=== PATIENT | female | born 1985 | race Caucasian/White ===

== ENCOUNTER 2019-01-16 16:57 | Emergency (ER) | payer BC, OTHER ==
[2019-01-16] MEDS ORDERED: diphenhydrAMINE 50 MG/ML SDV IVPUSH ONE (17:22)
[2019-01-16] MEDS ORDERED: methylPREDNISolone Sodium Succinate 125 MG/2 ML SDV IVPUSH ONE (17:23)
[2019-01-16] MEDS ORDERED: Famotidine 20 MG/2 ML SDV IVPUSH ONE (17:23)
[2019-01-16] MEDS ORDERED: Sodium Chloride 0.9% 1,000 ML IV SCH (17:30)
--- NOTE | 2019-01-16 17:31 | EDM.PDOC ---
ED HPI GENERAL MEDICAL PROBLEM - General Chief Complaint: Allergic Reaction Stated Complaint: ALLERGIC RX SENT FROM CLINIC Time Seen by Provider: 01/16/19 17:15 Source of Information: Reports: Patient History Limitations: Reports: No Limitations - History of Present Illness INITIAL COMMENTS - FREE TEXT/NARRATIVE: 33-year-old female presents to the ED with an acute allergic reaction likely due to environmental exposure. She states she was out cutting grass this morning around 0900 hrs. and started to develop generalized pruritus and development of hives in her antecubital fossa is and popliteal fossas. She has taken 75 mg of Benadryl since this morning. She has a history of being allergic to environmental things in the past but each ear seems to get a bit worse. Today she is also developed swelling in her throat and has a hot potato" voice. She also feels a bit of central pressure discomfort which I think is bronchospasm. She's not wheezing per se. She has mild generalized erythema. Onset: Today Onset Date: 01/16/19 Onset Time: 09:00 Duration: Hour(s):, Getting Worse Location: Reports: Face (Feels swelling in her neck and throat.), Chest (Some central chest pressure discomfort which I believe is upper bronchospasm without wheeze.), Upper Extremity, Left, Upper Extremity, Right, Lower Extremity, Left, Lower Extremity, Right, Other (Generalized pruritus with hives in the antecubital fossa is and popliteal fossa of both legs.) Quality: Reports: Other (Generalized pruritus) Severity: Moderate Improves with: Reports: None Worsens with: Reports: None Context: Reports: Other (Started while cutting grass this morning and mowing the lawn.). Denies: Activity, Exercise, Lifting, Sick Contact, Trauma Associated Symptoms: Reports: Malaise, Rash (Hives antecubital fossa is and popliteal fossa is.). Denies: Confusion, Chest Pain, Cough, cough w sputum, Diaphoresis, Fever/Chills, Headaches, Loss of Appetite, Nausea/Vomiting, Seizure (From taking so much Benadryl), Shortness of Breath, Syncope Treatments GENETIC COORDINATOR: Reports: Other (see below) (She has taken 75 mg of Benadryl so far today.) - Related Data Allergies Allergy/AdvReac Type Severity Reaction Status Date / Time Seasonal Allergy Hives Uncoded 06/18/19 17:10 Home Meds: Home Meds Cetirizine HCl [Zyrtec] 10 mg PO DAILY 01/16/19 [History] FLUoxetine [PROzac] 10 mg PO DAILY 01/16/19 [History] predniSONE [Deltasone] 20 mg PO BID #20 tablet 01/16/19 [Rx] Past Medical History Cardiovascular History: Reports: None Respiratory History: Reports: None Gastrointestinal History: Reports: None Genitourinary History: Reports: None 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 Social & Family History - Tobacco Use Smoking Status *Q: Never Smoker - Caffeine Use Caffeine Use: Reports: None - Recreational Drug Use Recreational Drug Use: No - Living Situation & Occupation Living situation: Reports: Single Occupation: Student ED ROS ALLERGIC REACTION - Review of Systems Review Of Systems: See Below Constitutional: Denies: Fever, Chills, Malaise, Weakness, Fatigue, Decreased Appetite, Weight Loss HEENT: Reports: Rhinitis, Throat Swelling (Awareness of throat swelling in the back of her throat with hot potato voice. Symptoms seem to be worsening over the last 6 hours) Respiratory: Reports: Shortness of Breath (Clear fluid from the nose.), Other ( Central chest pressure discomfort.). Denies: Wheezing Cardiovascular: Reports: Chest Pain, Blood Pressure Problem (Central chest pressure discomfort.). Denies: Dyspnea on Exertion, Edema, Lightheadedness, Orthopnea Endocrine: Reports: Fatigue GI/Abdominal: Reports: No Symptoms. Denies: Diarrhea : Reports: No Symptoms Musculoskeletal: Reports: No Symptoms Skin: Reports: Pruritis, Erythema (Generalized pruritus and realized erythema), Urticaria (Mostly in the antecubital fossa some popliteal fossa is) Neurological: Reports: No Symptoms Psychiatric: Reports: No Symptoms Hematologic/Lymphatic: Reports: No Symptoms Immunologic: Reports: No Symptoms ED EXAM GENERAL NO PERIP PULSE - Physical Exam Exam: See Below Exam Limited By: No Limitations General Appearance: Alert, WD/WN, Moderate Distress, Other (Speaks with hot potato voice.) Eye Exam: Bilateral Eye: Normal Inspection, Periorbital Changes (No swelling of upper or lower eyelids.) Nose: Clear Rhinorrhea Throat/Mouth: Other (There is swelling of the soft palate and the uvula. For the mouth is normal.) Neck: Normal Inspection, Supple, Non-Tender, Full Range of Motion, Other (There is no inspiratory stridor.). No: Carotid Bruit, Lymphadenopathy (L), Lymphadenopathy (R) Respiratory/Chest: Lungs Clear, Normal Breath Sounds, Chest Non-Tender, Respiratory Distress. No: Wheezing (Mild tachypnea.), Stridor Cardiovascular: Normal Peripheral Pulses, Regular Rate, Rhythm, No Murmur, No Rub, Tachycardia (Mild tachycardia at rest while 2/m. She is quite anxious.) Extremities: Normal Inspection, Normal Range of Motion, Non-Tender, No Pedal Edema, Normal Capillary Refill Neurological: Alert, Oriented, CN II-XII Intact, Normal Cognition Psychiatric: Normal Mood, Anxious Skin Exam: Warm, Dry, Intact, Erythema (Generalized erythema.), Rash (Urticaria antecubital fossae and popliteal fossae) Course - Vital Signs Last Recorded V/S: Last Vital Signs Temp 36.0 C 01/16/19 17:06 Pulse 102 H 01/16/19 17:06 Resp 20 01/16/19 17:06 BP 181/100 H 01/16/19 17:06 Pulse Ox 100 01/16/19 17:06 - Orders/Labs/Meds Orders: Active Orders 24 hr Category Date Time Status Sodium Chloride 0.9% [Normal Saline] 1,000 ml Med 01/16/19 17:30 Active IV ASDIRECTED Medication Orders Sodium Chloride (Normal Saline) 1,000 mls @ 500 mls/hr IV ASDIRECTED ELICIA Last Admin: 01/16/19 17:32 Dose: 500 mls/hr Meds: Medications Generic Name Dose Route Start Last Admin Trade Name Freq PRN Reason Stop Dose Admin Sodium Chloride 1,000 mls @ 500 mls/hr 01/16/19 17:30 01/16/19 17:32 Normal Saline IV 500 mls/hr ASDIRECTED ELICIA Administration Discontinued Medications Generic Name Dose Route Start Last Admin Trade Name Freq PRN Reason Stop Dose Admin Diphenhydramine HCl 50 mg 01/16/19 17:22 01/16/19 17:33 Benadryl IVPUSH 01/16/19 17:23 50 mg ONETIME ONE Administration Famotidine 20 mg 01/16/19 17:23 01/16/19 17:36 Pepcid IVPUSH 01/16/19 17:24 20 mg ONETIME ONE Administration Methylprednisolone Sodium Succinate 125 mg 01/16/19 17:23 01/16/19 17:38 Solu-Medrol IVPUSH 01/16/19 17:24 125 mg ONETIME ONE Administration - Radiology Interpretation Free Text/Narrative:: 33-year-old female presents to the ED with an acute allergic reaction apparently to environmental exposure to mowing lawn grass. She states she's developed hives over the last few years. She took 75 mg of Benadryl so far this morning and allergic symptoms seem to be continuing as she is developing more of a hot potato voice and a pressure sensation in her central chest without wheezing. She has hives in the antecubital fossae bilaterally as well as in the popliteal fossae bilaterally with some mild generalized erythema and generalized pruritus. Plan IV normal saline at 500 mils per hour. Given Solu- Medrol 125 mg IV with Pepcid 20 mg IV and Benadryl 50 mg IV. Will review her in one half hour. - Re-Assessments/Exams Free Text/Narrative Re-Assessment/Exam: 01/16/19 18:26: Erythema is dissipating as is the generalized pruritus. Hives are also dissipating. She still has a hot potato voice on inspection the uvula is still swollen but is reduced in size compared to my original assessment. Will review and half an hour Departure - Departure Time of Disposition: 18:58 Disposition: Home, Self-Care 01 Condition: Fair Clinical Impression: Allergic reaction Qualifiers: Encounter type: initial encounter Qualified Code(s): T78.40XA - Allergy, unspecified, initial encounter - Discharge Information *PRESCRIPTION DRUG MONITORING PROGRAM REVIEWED*: Not Applicable *COPY OF PRESCRIPTION DRUG MONITORING REPORT IN PATIENT ADRIANNE: Not Applicable Prescriptions: predniSONE [Deltasone] 20 mg PO BID #20 tablet Instructions: Hives Referrals: PCP,None [Primary Care Provider] - Forms: ED Department Discharge Additional Instructions: Evaluation the emergency room today in regards to development of a generalized allergic reaction involving redness or erythema of her skin. Development of hives in the antecubital fossae and popliteal fossae which is in the elbow creases and the tissue behind her knees. Also associated upper respiratory tract symptoms with swelling of the soft palate and the uvula. Also I suspect mild bronchospasm in her chest with discomfort without wheezing in the upper chest. You would take and 75 mg of Benadryl this morning. In spite of the symptoms seem to be worsening as the day went on. You're therefore treated with intravenous fluids. Solu-Medrol 125 mg IV with Pepcid 20 mg IV and 50 Zheng grams of Benadryl IV. The steroids will take about 4 hours to start to work and should relieve most of your symptoms overnight. Are you may use Benadryl 50 mg every 6 hours as necessary for relief of itching or return of hives. Suggest use of prednisone 20 mg with breakfast and supper for the next 5 days to make sure the allergic reaction completely settles down. There are 10 tablets of prednisone and extra that may be taken at the onset of Allergic reaction with one tablet twice daily for 5 days and Benadryl 50 mg every 6 hours as needed. Continues Zyrtec 10 mg every day. If possible you want to try and remove yourself from the potential allergens source. I'm not sure that constantino will be able to cut the grass again without having any similar experience. Possibly being fully covered and using fairly thick gloves may prevent sensitization. Suggest follow-up with an allergenist to have testing carried out to see what your allergic to and the possibility of starting a desensitization program since you're allergic response was fairly significant today. - My Orders Last 24 Hours: My Active Orders 01/16/19 17:30 Sodium Chloride 0.9% [Normal Saline] 1,000 ml IV ASDIRECTED - Assessment/Plan Last 24 Hours: My Active Orders 01/16/19 17:30 Sodium Chloride 0.9% [Normal Saline] 1,000 ml IV ASDIRECTED
== END 2019-01-16 19:21 | disposition home or self-care (01) ==
LOC: JD.ED 16:57
DX: L50.0 Allergic urticaria (principal); J30.1 Allergic rhinitis due to pollen; Z79.899 Other long term (current) drug therapy
CPT/HCPCS: 96361; 96374; 96375; 99282; J1200; J2930; J3490; J7040; 99284

== ENCOUNTER 2019-05-31 16:30 | Observation (INO) | payer OTHER ==
[2019-05-31] MEDS ORDERED: Sodium Chloride 0.9% 10 ML Syringe FLUSH PRN ×2 (17:10→17:23)
[2019-05-31] MEDS ORDERED: Sodium Chloride 0.9% 1,000 ML IV ONE ×2 (17:13→18:27)
[2019-05-31] MEDS ORDERED: Dexamethasone 10 MG/ML SDV IM ONE (17:13)
[2019-05-31] MEDS ORDERED: Ketorolac 30 MG/ML SDV IVPUSH ONE (17:13)
--- NOTE | 2019-05-31 17:17 | EDM.PDOC ---
ED HPI GENERAL MEDICAL PROBLEM - General Chief Complaint: ENT Problem Stated Complaint: DYSPHAGIA Time Seen by Provider: 05/31/19 17:02 Source of Information: Reports: Patient, RN Notes Reviewed History Limitations: Reports: No Limitations - History of Present Illness INITIAL COMMENTS - FREE TEXT/NARRATIVE: Patient is a 34-year-old female who presents to the ED for the evaluation of a worsening sore throat. She states she was seen at the walk-in clinic yesterday for this throat pain, she was swabbed for strep throat, this came back negative. They thought maybe she could have influenza, give her Zofran and IM pain medication for body aches and was sent home. She notes that the pain has worsened today, now is having the worst headache of her life, increased difficulty breathing due to the throat swelling, and increased throat pain. She states that she is not eating or drinking much due to the pain in the throat. She tried to go to the walk-in clinic for management, but they sent her here for evaluation. Patient does complain of fevers and chills, nausea and vomiting, headache, does have a muffled voice, is having some difficulty swallowing, she is not having any surgery chest pain or shortness of breath. She would rate her pain at a 9 out of 10. She has had a tonsillectomy and adenoidectomy. 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 Social & Family History - Tobacco Use Smoking Status *Q: Never Smoker - Caffeine Use Caffeine Use: Reports: None - Living Situation & Occupation Living situation: Reports: Single Occupation: Student ED ROS ENT - Review of Systems Review Of Systems: See Below Constitutional: Reports: Fever, Chills, Malaise, Decreased Appetite HEENT: Reports: Throat Pain, Throat Swelling Respiratory: Denies: Shortness of Breath Cardiovascular: Denies: Chest Pain GI/Abdominal: Reports: Nausea, Vomiting. Denies: Abdominal Pain, Diarrhea : Reports: No Symptoms Musculoskeletal: Reports: No Symptoms Skin: Reports: No Symptoms Neurological: Reports: Headache Psychiatric: Reports: No Symptoms Hematologic/Lymphatic: Reports: No Symptoms Immunologic: Reports: No Symptoms ED EXAM, ENT - Physical Exam Exam: See Below Exam Limited By: No Limitations General Appearance: Alert, WD/WN, No Apparent Distress (patient appears sickly on ED cot, she is mouth breathing d/t feeling of throat swelling) Eye Exam: Bilateral Eye: EOMI, Normal Inspection, PERRL Ears: Normal External Exam, Normal Canal, Hearing Grossly Normal, Normal TMs, TM Fluid (serous fluid noted behind the Right TM) Mouth/Throat: Normal Inspection, Normal Gums, Normal Lips, Normal Teeth, Dry Mucous Membrane, Muffled Voice, Throat Pain, Throat Swelling. No: Perioral Cyanosis, Trismus, Uvular Deviation Head: Atraumatic, Normocephalic Neck: Normal Inspection, Supple, Tender Lateral (bilaterally, but worse on left side mainly). No: Lymphadenopathy (L), Lymphadenopathy (R) Respiratory/Chest: No Respiratory Distress, Lungs Clear, Normal Breath Sounds, No Accessory Muscle Use, Chest Non-Tender Cardiovascular: Normal Peripheral Pulses, Regular Rate, Rhythm, No Murmur GI/Abdominal: Normal Bowel Sounds, Soft, Non-Tender, No Distention, No Mass Extremities: Normal Inspection, Normal Capillary Refill Neurological: Alert, Oriented, Normal Cognition, No Motor/Sensory Deficits Psychiatric: Normal Affect, Normal Mood Skin: Warm (warm to the touch), Dry, Intact, Normal Color (pt appears flush), No Rash Course - Vital Signs Last Recorded V/S: Last Vital Signs Temp 100.4 F 05/31/19 16:56 Pulse 108 H 05/31/19 16:56 Resp 18 05/31/19 16:56 BP 146/82 H 05/31/19 16:56 Pulse Ox 99 05/31/19 16:56 - Orders/Labs/Meds Orders: Active Orders 24 hr Category Date Time Status Peripheral IV Care [RC] . DIRECTED Care 05/31/19 17:12 Ordered CULTURE BLOOD [BC] Stat Lab 05/31/19 17:18 Ordered CULTURE BLOOD [BC] Stat Lab 05/31/19 17:18 Ordered STREP SCRN A RAPID W CULT CONF [RM] Stat Lab 05/31/19 19:23 Ordered TSH [CHEM] Stat Lab 05/31/19 19:54 Ordered Lactated Ringers [Ringers, Lactated] 1,000 ml Med 05/31/19 20:15 Active IV ASDIRECTED Sodium Chloride 0.9% [Saline Flush] Med 05/31/19 17:10 Ordered 10 ml FLUSH ASDIRECTED PRN Sodium Chloride 0.9% [Saline Flush] Med 05/31/19 17:23 Active 10 ml FLUSH ONETIME PRN Blood Culture x2 Reflex Set [OM.PC] Stat Oth 05/31/19 17:18 Ordered Peripheral IV Insertion Adult [OM.PC] Stat Oth 05/31/19 17:10 Ordered Medication Orders Lactated Ringer's (Ringers, Lactated) 1,000 mls @ 200 mls/hr IV ASDIRECTED ELICIA Sodium Chloride (Saline Flush) 10 ml FLUSH ASDIRECTED PRN PRN Reason: Keep Vein Open Last Admin: 05/31/19 17:57 Dose: 10 ml Sodium Chloride (Saline Flush) 10 ml FLUSH ONETIME PRN PRN Reason: KEEP VEIN OPEN Last Admin: 05/31/19 18:42 Dose: 10 ml Labs: Laboratory Tests 05/31/19 05/31/19 05/31/19 Range/Units 17:42 17:42 17:42 WBC 12.34 H (3.98-10.04) K/mm3 RBC 4.18 (3.98-5.22) M/mm3 Hgb 13.6 (11.2-15.7) gm/dl Hct 42.1 (34.1-44.9) % MCV 100.7 H (79.4-94.8) fl MCH 32.5 H (25.6-32.2) pg MCHC 32.3 (32.2-35.5) g/dl RDW Std Deviation 45.2 (36.4-46.3) fL Plt Count 188 (182-369) K/mm3 MPV 11.5 (9.4-12.3) fl Neutrophils % (Manual) 88 H (40-60) % Band Neutrophils % 2 (0-10) % Lymphocytes % (Manual) 6 L (20-40) % Atypical Lymphs % 0 % Monocytes % (Manual) 4 (2-10) % Eosinophils % (Manual) 0 L (0.7-5.8) % Basophils % (Manual) 0 L (0.1-1.2) Platelet Estimate Adequate Anisocytosis 1+ slight Macrocytosis 1+ slight RBC Morph Comment Not Reportable Sodium 136 (136-145) mEq/L Potassium 3.5 (3.5-5.1) mEq/L Chloride 100 (98-107) mEq/L Carbon Dioxide 25 (21-32) mEq/L Anion Gap 14.5 (5-15) BUN 8 (7-18) mg/dL Creatinine 1.2 H (0.55-1.02) mg/dL Est Cr Clr Drug Dosing 67.89 mL/min Estimated GFR (MDRD) 52 (>60) mL/min BUN/Creatinine Ratio 6.7 L (14-18) Glucose 101 (74-106) mg/dL Calcium 8.6 (8.5-10.1) mg/dL Total Bilirubin 1.2 H (0.2-1.0) mg/dL AST 14 L (15-37) U/L ALT 17 (14-59) U/L Alkaline Phosphatase 64 (46-116) U/L C-Reactive Protein 17.1 H* (<1.0) mg/dL Total Protein 7.8 (6.4-8.2) g/dl Albumin 3.7 (3.4-5.0) g/dl Globulin 4.1 gm/dL Albumin/Globulin Ratio 0.9 L (1-2) HCG, Qual Negative (NEGATIVE) Meds: Medications Generic Name Dose Route Start Last Admin Trade Name Freq PRN Reason Stop Dose Admin Lactated Ringer's 1,000 mls @ 200 mls/hr 05/31/19 20:15 Ringers, Lactated IV ASDIRECTED ELICIA Sodium Chloride 10 ml 05/31/19 17:10 05/31/19 17:57 Saline Flush FLUSH 10 ml ASDIRECTED PRN Administration Keep Vein Open Sodium Chloride 10 ml 05/31/19 17:23 05/31/19 18:42 Saline Flush FLUSH 10 ml ONETIME PRN Administration KEEP VEIN OPEN Discontinued Medications Generic Name Dose Route Start Last Admin Trade Name Freq PRN Reason Stop Dose Admin Dexamethasone 10 mg 05/31/19 17:48 05/31/19 17:51 Dexamethasone IVPUSH 05/31/19 17:49 10 mg ONETIME ONE Administration Hydromorphone HCl 0.5 mg 05/31/19 18:59 05/31/19 19:19 Dilaudid IVPUSH 05/31/19 19:00 0.5 mg ONETIME ONE Administration Sodium Chloride 1,000 mls @ 999 mls/hr 05/31/19 17:13 05/31/19 17:55 Normal Saline IV 05/31/19 18:13 999 mls/hr ONETIME ONE Administration Sodium Chloride 1,000 mls @ 999 mls/hr 05/31/19 18:27 05/31/19 19:26 Normal Saline IV 05/31/19 19:27 999 mls/hr ONETIME ONE Administration Clindamycin Phosphate 900 mg/ 106 mls @ 200 mls/hr 05/31/19 19:00 05/31/19 19 :27 Sodium Chloride IV 05/31/19 19:31 Not Given ONETIME ONE Clindamycin Phosphate 900 mg/ 50 mls @ 100 mls/hr 05/31/19 19:07 05/31/19 19: 22 Premix IV 05/31/19 19:36 100 mls/hr ONETIME ONE Administration Iopamidol 80 ml 05/31/19 17:23 05/31/19 18:42 Isovue-300 (61%) IVPUSH 05/31/19 17:24 80 ml ONETIME ONE Administration Ketorolac Tromethamine 30 mg 05/31/19 17:13 05/31/19 17:53 Toradol IVPUSH 05/31/19 17:14 30 mg ONETIME ONE Administration - Re-Assessments/Exams Free Text/Narrative Re-Assessment/Exam: 05/31/19 17:22 Patient presents to the ED for evaluation of a worsening sore throat. Her presentation is very worrisome, she is febrile, and looks as if she does not feel very well at all. I did order an IV to be placed some IV fluids, CBC, CMP , CRP,HCG, blood cultures 2, 10 mg IV dexamethasone, and 30 mg IV Toradol for initial management. 05/31/19 19:47 Patient's white count is mildly elevated at 12,000, with 88% neutrophils and 2% bands, metabolic panel is essentially within normal limits, CRP is elevated at 17.1. CT demonstrates soft tissue abnormality within the vallecular space with pushes the epiglottis inferiorly. With measurements of 3.6 cm 2.7 cm 2.7 cm. Uncertain if this is due to a a prominent soft tissue swelling or represents a mass. Due to the patient's sickly appearance, I do believe this is more soft tissue swelling. I will discuss the case with Dr. Joselyn Waldrop for possible hospital admission. Patient did receive 900 mg of IV clindamycin. She was also complaining of some increased pain, so I did give her 0.5 mg of IV Dilaudid for further pain relief. CT also found several low-density findings within the thyroid gland, suggest getting a nonemergency thyroid ultrasound at some point for further evaluation. 05/31/19 20:03 Dr. Joselyn Waldrop states she will accept her for observation at this time. I will put in this order at this time. Departure - Departure Time of Disposition: 20:04 Disposition: Refer to Observation Condition: Fair Clinical Impression: Pharyngeal abscess Otitis media Qualifiers: Otitis media type: serous Chronicity: acute Laterality: right Recurrence: non- recurrent Qualified Code(s): H65.01 - Acute serous otitis media, right ear - Discharge Information *PRESCRIPTION DRUG MONITORING PROGRAM REVIEWED*: No *COPY OF PRESCRIPTION DRUG MONITORING REPORT IN PATIENT ADRIANNE: No Referrals: PCP,None [Primary Care Provider] - Forms: ED Department Discharge - My Orders Last 24 Hours: My Active Orders 05/31/19 17:10 Sodium Chloride 0.9% [Saline Flush] 10 ml FLUSH ASDIRECTED PRN Peripheral IV Insertion Adult [OM.PC] Stat 05/31/19 17:12 Peripheral IV Care [RC] . DIRECTED 05/31/19 17:18 CULTURE BLOOD [BC] Stat CULTURE BLOOD [BC] Stat Blood Culture x2 Reflex Set [OM.PC] Stat 05/31/19 17:23 Sodium Chloride 0.9% [Saline Flush] 10 ml FLUSH ONETIME PRN 05/31/19 19:23 STREP SCRN A RAPID W CULT CONF [RM] Stat 05/31/19 19:54 TSH [CHEM] Stat - Assessment/Plan Last 24 Hours: My Active Orders 05/31/19 17:10 Sodium Chloride 0.9% [Saline Flush] 10 ml FLUSH ASDIRECTED PRN Peripheral IV Insertion Adult [OM.PC] Stat 05/31/19 17:12 Peripheral IV Care [RC] . DIRECTED 05/31/19 17:18 CULTURE BLOOD [BC] Stat CULTURE BLOOD [BC] Stat Blood Culture x2 Reflex Set [OM.PC] Stat 05/31/19 17:23 Sodium Chloride 0.9% [Saline Flush] 10 ml FLUSH ONETIME PRN 05/31/19 19:23 STREP SCRN A RAPID W CULT CONF [RM] Stat 05/31/19 19:54 TSH [CHEM] Stat
[2019-05-31] MEDS ORDERED: Iopamidol 612 MG/ML 100 ML Bottle IVPUSH ONE (17:23)
[2019-05-31] MEDS ORDERED: Dexamethasone 10 MG/ML SDV IVPUSH ONE (17:48)
[2019-05-31] MEDS ORDERED: HYDROmorphone 0.5 MG/0.5 ML Syringe IVPUSH ONE (18:59)
[2019-05-31] MEDS ORDERED: Clindamycin Phosphate 900 MG in Sodium Chloride 0.9% 100 ML IV ONE (19:00)
[2019-05-31] MEDS ORDERED: Clindamycin Phosphate in D5W 900 MG in Premix Bag 1 BAG IV ONE ×2 (19:07)
--- NOTE | 2019-05-31 19:28 | CT ---
CT neck Multiple axial sections were obtained through the neck. Intravenous contrast was utilized. Findings: Partially visualized opacities within the right upper lung are seen. Difficult to exclude early developing pneumonia. Thyroid gland shows several low density nodules which are most likely incidental although follow-up ultrasound could be obtained. Mild mucosal thickening is seen within the right maxillary sinus. Soft tissue fullness is noted within the vallecular space which pushes the epiglottis inferiorly. This finding measures 3.6 cm x 2.7 cm x 2.7 cm. Uncertain if this is due to prominent soft tissue swelling or represents a mass. Prevertebral soft tissues appear within normal limits. No additional oral pharynx abnormalities are seen. No adenopathy is seen within the neck. Submandibular salivary glands and parotid salivary glands appear within normal limits. Impression: 1. Soft tissue abnormality within the vallecular space which pushes the epiglottis inferiorly. Measurements as noted above. As mentioned above, uncertain if this is due to prominent soft tissue swelling or represents a mass. Direct visualization recommended to further evaluate with possible biopsy. 2. Slight parenchymal densities partially visualized within the right upper lung and difficult to exclude early developing pneumonia. 3. Thyroid gland shows several low-density findings which are likely incidental although nonemergent thyroid ultrasound is recommended. Diagnostic code #9
[2019-05-31] MEDS ORDERED: Ampicillin/Sulbactam Na 3 GM in Sodium Chloride 0.9% 100 ML IV SCH (20:00)
[2019-05-31] MEDS: Lactated Ringers 1,000 ML IV SCH (20:04)
[2019-05-31] MEDS ORDERED: Morphine 2 MG/ML Syringe IVPUSH PRN (20:05)
[2019-05-31] MEDS ORDERED: Ondansetron 4 MG/2 ML SDV IV PRN (20:05)
[2019-05-31] MEDS ORDERED: Ketorolac 30 MG/ML SDV IV PRN (20:05)
[2019-05-31] MEDS ORDERED: Acetaminophen 325 MG Tab PO PRN (20:05)
[2019-05-31] MEDS ORDERED: Ondansetron 4 MG Tab.DIS PO PRN (20:05)
--- NOTE | 2019-05-31 20:16 | PCM.HP.2 ---
H&P History of Present Illness - General Date of Service: 05/31/19 Admit Problem/Dx: Admission Diagnosis/Problem Admission Diagnosis/Problem Retropharyngeal abscess - History of Present Illness Initial Comments - Free Text/Narative: This is a 34 year old female with past medical history of depression who comes to the ED after being referred by the walk in clinic. She comes in complaining of a sore throat for 2 days associated with fever, chills, anorexia, nausea, vomiting preceded by nasal congestion. Once patient felt she was getting worse she decided to consult for further evaluation. Headache Pain Score (Numeric/FACES): 9 Throat Pain Score (Numeric/FACES): 10 - Related Data Allergies/Adverse Reactions: Allergies Allergy/AdvReac Type Severity Reaction Status Date / Time Seasonal Allergy Hives Uncoded 01/16/19 17:10 Home Medications: Home Meds FLUoxetine [PROzac] 10 mg PO DAILY 01/16/19 [History] Past Medical History Cardiovascular History: Reports: None Respiratory History: Reports: None Gastrointestinal History: Reports: None Genitourinary History: Reports: None SPRAY PILOT History: 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 Social & Family History - Tobacco Use Smoking Status *Q: Never Smoker - Caffeine Use Caffeine Use: Reports: None - Living Situation & Occupation Living situation: Reports: Single Occupation: Student H&P Review of Systems - Review of Systems: Review Of Systems: See Below General: Reports: Fever, Chills, Malaise, Diaphoresis. Denies: Weakness, Fatigue, Night Sweats, Decreased Appetite, Weight Loss HEENT: Reports: Rhinitis, Post Nasal Drip, Sinus Congestion, Sore Throat. Denies: Headaches, Hearing Changes, Visual Changes Pulmonary: Denies: Shortness of Breath, Wheezing, Pleuritic Chest Pain, Cough, Sputum, Hemoptysis Cardiovascular: Denies: Chest Pain, Palpitations, Dyspnea on Exertion, Orthopnea , PND, Edema, Lightheadedness, Syncope Gastrointestinal: Reports: Anorexia, Nausea, Vomiting. Denies: Abdominal Pain, Constipation, Diarrhea Genitourinary: Denies: Dysuria, Frequency, Burning, Pain Musculoskeletal: Denies: Joint Pain, Joint Swelling, Muscle Pain, Muscle Stiffness Skin: Denies: Cyanosis, Jaundice, Mottled, Rash, Erythema Psychiatric: Denies: Confusion, Depression, Mood Lability, Anxiety Exam - Exam Exam: See Below - Vital Signs Vital Signs: Last Vital Signs Temp 38.0 C 05/31/19 16:56 Pulse 108 H 05/31/19 16:56 Resp 18 05/31/19 16:56 BP 146/82 H 05/31/19 16:56 Pulse Ox 99 05/31/19 16:56 Weight: 124.738 kg - Exam General: Alert, Oriented, Cooperative. No: Mild Distress HEENT: Conjunctiva Clear, Hearing Intact, Other (posterior pharyngeal space is reduced with significant swelling, no exudates. Right ear canal is erythematous and tympanic membrane is opaque. Painful tragus manipulation) Neck: Supple, Lymphadenopathy Lungs: Clear to Auscultation, Normal Respiratory Effort Cardiovascular: Regular Rate, Regular Rhythm GI/Abdominal Exam: Normal Bowel Sounds, Soft, Non-Tender Back Exam: Normal Inspection Extremities: Normal Inspection Neuro Extensive - Mental Status: Alert Psychiatric: Normal Affect, Normal Mood - Patient Data Lab Results Last 24 hrs: Laboratory Results - last 24 hr 05/31/19 05/31/19 05/31/19 Range/Units 17:42 17:42 17:42 WBC 12.34 H (3.98-10.04) K/mm3 RBC 4.18 (3.98-5.22) M/mm3 Hgb 13.6 (11.2-15.7) gm/dl Hct 42.1 (34.1-44.9) % MCV 100.7 H (79.4-94.8) fl MCH 32.5 H (25.6-32.2) pg MCHC 32.3 (32.2-35.5) g/dl RDW Std Deviation 45.2 (36.4-46.3) fL Plt Count 188 (182-369) K/mm3 MPV 11.5 (9.4-12.3) fl Neutrophils % (Manual) 88 H (40-60) % Band Neutrophils % 2 (0-10) % Lymphocytes % (Manual) 6 L (20-40) % Atypical Lymphs % 0 % Monocytes % (Manual) 4 (2-10) % Eosinophils % (Manual) 0 L (0.7-5.8) % Basophils % (Manual) 0 L (0.1-1.2) Platelet Estimate Adequate Anisocytosis 1+ slight Macrocytosis 1+ slight RBC Morph Comment Not Reportable Sodium 136 (136-145) mEq/L Potassium 3.5 (3.5-5.1) mEq/L Chloride 100 (98-107) mEq/L Carbon Dioxide 25 (21-32) mEq/L Anion Gap 14.5 (5-15) BUN 8 (7-18) mg/dL Creatinine 1.2 H (0.55-1.02) mg/dL Est Cr Clr Drug Dosing 67.89 mL/min Estimated GFR (MDRD) 52 (>60) mL/min BUN/Creatinine Ratio 6.7 L (14-18) Glucose 101 (74-106) mg/dL Calcium 8.6 (8.5-10.1) mg/dL Total Bilirubin 1.2 H (0.2-1.0) mg/dL AST 14 L (15-37) U/L ALT 17 (14-59) U/L Alkaline Phosphatase 64 (46-116) U/L C-Reactive Protein 17.1 H* (<1.0) mg/dL Total Protein 7.8 (6.4-8.2) g/dl Albumin 3.7 (3.4-5.0) g/dl Globulin 4.1 gm/dL Albumin/Globulin Ratio 0.9 L (1-2) HCG, Qual Negative (NEGATIVE) Result Diagrams: 05/31/19 17:42 05/31/19 17:42 - Problem List (1) Pharyngeal abscess SNOMED Code(s): 51704375 ICD Code: J39.1 - OTHER ABSCESS OF PHARYNX Status: Acute Current Visit: No (2) Otitis media SNOMED Code(s): 28780261 ICD Code: H66.90 - OTITIS MEDIA, UNSPECIFIED, UNSPECIFIED EAR Status: Acute Current Visit: No Qualifiers: Otitis media type: serous Chronicity: acute Laterality: right Recurrence: non-recurrent Qualified Code(s): H65.01 - Acute serous otitis media, right ear (3) Depression SNOMED Code(s): 68786171 ICD Code: F32.9 - MAJOR DEPRESSIVE DISORDER, SINGLE EPISODE, UNSPECIFIED Status: Acute Current Visit: Yes (4) Anxiety SNOMED Code(s): 29265248 ICD Code: F41.9 - ANXIETY DISORDER, UNSPECIFIED Status: Acute Current Visit: Yes (5) Obesity, Class III, BMI 40-49.9 (morbid obesity) SNOMED Code(s): 686258703, 425313339, 97553380822500 ICD Code: E66.01 - MORBID (SEVERE) OBESITY DUE TO EXCESS CALORIES Status: Acute Current Visit: Yes (6) Macrocytosis without anemia SNOMED Code(s): 744597722 ICD Code: D75.89 - OTHER SPECIFIED DISEASES OF BLOOD AND BLOOD-FORMING ORGANS Status: Acute Current Visit: Yes (7) Acute kidney injury SNOMED Code(s): 13710060, 84156749 ICD Code: N17.9 - ACUTE KIDNEY FAILURE, UNSPECIFIED Status: Acute Current Visit: Yes Problem List Initiated/Reviewed/Updated: Yes Assessment/Plan Comment:: Pharyngeal abscess with otitis media Muffled voice + fever + CT + abscess No airway compromise Previous tonsillectomy and adrenalectomy PLAN - Decadron 10mg Iv q6h - Unasyn - Lactic acid - PRN lidocaine lozenges Acute kidney injury Likely 2/2 volume depletion 2/2 GI loss PLAN - LR at 200ml/hr x 2 liters - Lactic acid level Depression and Anxiety On home prozac No current suicidal or homicidal ideation PLAN - Continue Prozac 20mg QD Obesity, Class III, BMI 40-49.9 (morbid obesity) No acute issues PLAN - HbA1c - Lipid panel - Recommend diet and lifestyle modifications to PCP Macrocytosis without anemia No known cause as per patient PLAN - Vitamin B12,folic acid and iron panel Incidental thyroid nodule No symptoms PLAN - Discharge with orders for thyroid US and TSH - Follow up as an outpatient for w/u PROPHYLAXIS: DVT-Ambulation GI- Not indicated CODE STATUS: FULL CODE DISPOSITION: Admitted under observation for IV antibiotics and steroids as well as pain management. Discharge very likely in the next 24-48 hours baring no complications.
[2019-05-31] MEDS: Benzocaine/Cetylpyridinium/Menthol Lozenge MUCMEM PRN (21:49)
[2019-05-31] MEDS: Ampicillin/Sulbactam Na 3 GM in Sodium Chloride 0.9% 100 ML IV SCH (22:23)
[2019-05-31] MEDS: Dexamethasone 10 MG/ML SDV IV SCH (23:20)
[2019-06-01] MEDS: Benzocaine/Cetylpyridinium/Menthol Lozenge MUCMEM PRN (00:03)
[2019-06-01] MEDS: Lactated Ringers 1,000 ML IV SCH ×2 (00:07→04:51)
[2019-06-01] MEDS: Ampicillin/Sulbactam Na 3 GM in Sodium Chloride 0.9% 100 ML IV SCH ×2 (04:50→09:48)
[2019-06-01] MEDS: Dexamethasone 10 MG/ML SDV IV SCH (05:35)
--- NOTE | 2019-06-01 07:50 | PCM.DCSUM1 ---
Discharge Summary - Hospital Course HPI Initial Comments: Patient came in on 05/31 complaining of worsening sore throat associated with muffled voice, fevers and chills for 2 days. She also endorsed nausea and vomiting for 1 day. Diagnosis: Stroke: No - Discharge Data Discharge Date: 06/01/19 Discharge Disposition: Home, Self-Care 01 Condition: Good - Referral to Home Health Primary Care Physician: PCP None - Discharge Diagnosis/Problem(s) (1) Acute streptococcal pharyngitis SNOMED Code(s): 20841164, 123165870 ICD Code: J02.0 - STREPTOCOCCAL PHARYNGITIS Status: Acute Priority: High (2) Pharyngeal abscess SNOMED Code(s): 06889857 ICD Code: J39.1 - OTHER ABSCESS OF PHARYNX Status: Acute Priority: High (3) Otitis media SNOMED Code(s): 78564434 ICD Code: H66.90 - OTITIS MEDIA, UNSPECIFIED, UNSPECIFIED EAR Status: Acute Priority: High Qualifiers: Otitis media type: serous Chronicity: acute Laterality: right Recurrence: non-recurrent Qualified Code(s): H65.01 - Acute serous otitis media, right ear (4) Acute kidney injury SNOMED Code(s): 67659453, 74093709 ICD Code: N17.9 - ACUTE KIDNEY FAILURE, UNSPECIFIED Status: Acute Priority: High (5) Macrocytosis without anemia SNOMED Code(s): 611128579 ICD Code: D75.89 - OTHER SPECIFIED DISEASES OF BLOOD AND BLOOD-FORMING ORGANS Status: Acute (6) Depression SNOMED Code(s): 77895255 ICD Code: F32.9 - MAJOR DEPRESSIVE DISORDER, SINGLE EPISODE, UNSPECIFIED Status: Acute Priority: Low (7) Anxiety SNOMED Code(s): 73790663 ICD Code: F41.9 - ANXIETY DISORDER, UNSPECIFIED Status: Acute Priority: Low (8) Obesity, Class III, BMI 40-49.9 (morbid obesity) SNOMED Code(s): 369396119, 889554297, 35426492259851 ICD Code: E66.01 - MORBID (SEVERE) OBESITY DUE TO EXCESS CALORIES Status: Acute Priority: Medium - Patient Summary/Data Consults: Patient needs to be seen by ENT in the next 10-14 days Labs Pending at D/C: HbA1c Vitamin B12 Folic Acid Iron level, iron saturation, TIBC, ferritin Lipid panel Recommended Follow-up Testing/Procedures: DISCHARGE INSTRUCTIONS TO PATIENT 1. Please make sure you follow up with you primary care provider in the next 5- 7 days 2. You are being discharged on antibiotics, Augmentin, please complete the treatment of 14 days regardless of your symptoms 3. You are also being discharged on a steroid which will improve your swelling, take this one as indicated for 6 days taking one pill less every day 4. You have a prescription for as needed anesthesia lozenges for pain 5. You will need to follow up with an ENT in 10-14 days 6. Avoid any activity that includes you being underwater until antibiotic regimen is completed 7. Please make sure your PCP requests the record for this admission 8. Weight loss and physical activity as tolerated is recommended 9. Avoid drinking alcohol, using tobacco or any illicit drug 10. If your symptoms recur or they are getting worse despite treatment please call your PCP's office or come to the ED for further evaluation DISCHARGE RECOMMENDATIONS TO PATIENT 1. Please make sure she is evaluated by and ENT in the next 10- [address] had an incidental finding of thyroid nodule, please follow up with US imaging. TSH within normal limits. 3. Patient has a BMI > 40 and glucose on admission was elevated for which I ordered HbA1c which is pending. 4. Please request records for lab reports. 5. CBC with macrocytosis without anemia, vitamin levels ordered and pending. Hospital Course: Upon evaluation in the ED she was found to have significant retropharyngeal edema on physical exam for which a CT scan was performed and found a mass suggestive of retropharyngeal abscess. She was admitted on Decadron and Unasyn. Rapid strep + Discharged once symptoms improved on Augmentin to complete 14 days, a Medrol taper dose pack and Cepacol as needed. - Patient Instructions Diet: Usual Diet as Tolerated Activity: As Tolerated Driving: May Drive Today Showering/Bathing: May Shower - Discharge Plan *PRESCRIPTION DRUG MONITORING PROGRAM REVIEWED*: No *COPY OF PRESCRIPTION DRUG MONITORING REPORT IN PATIENT ADRIANNE: No Prescriptions/Med Rec: Amoxicillin/Potassium Clav [Augmentin 875-125 Tablet] 1 each PO BID 14 Days #27 tablet Benzocaine/Menthol [Cepacol Sore Throat Lozenge] 1 each MM Q2H PRN #20 lozenge PRN Reason: Sore Throat methylPREDNISolone [Medrol] 84 mg PO DAILY 6 Days #1 dospk Home Medications: Home Meds FLUoxetine [PROzac] 10 mg PO DAILY 01/16/19 [History] Amoxicillin/Potassium Clav [Augmentin 875-125 Tablet] 1 each PO BID 14 Days #27 tablet 06/01/19 [Rx] Benzocaine/Menthol [Cepacol Sore Throat Lozenge] 1 each MM Q2H PRN #20 lozenge 06/01/19 [Rx] methylPREDNISolone [Medrol] 84 mg PO DAILY 6 Days #1 dospk 06/01/19 [Rx] Patient Handouts: Strep Throat Referrals: Cristel Nina MD [Ordering Only Provider] - 06/08/19 10:30 am (Please check in at 10:15 am.) - Discharge Summary/Plan Comment DC Time >30 min.: Yes - General Info Date of Service: 06/01/19 - Review of Systems General: Denies: Fever, Weakness, Fatigue, Malaise, Chills, Night Sweats, Appetite HEENT: Reports: Sore Throat. Denies: Contact Lenses, Dysphasia, Ear Pain, Eye Pain, Headaches, Post Nasal Drip, Sinus Congestion, Rhinitis, Visual Changes Pulmonary: Denies: Shortness of Breath, Pleuritic Chest Pain, Cough, Sputum, Hemoptysis, Wheezing Cardiovascular: Denies: Chest Pain, Palpitations, Edema, Lightheadedness Gastrointestinal: Denies: Abdominal Pain, Constipation, Decreased Appetite, Diarrhea, Nausea, Vomiting Genitourinary: Denies: Dysuria, Frequency, Burning Musculoskeletal: Denies: Joint Pain, Joint Swelling Skin: Denies: Cyanosis, Jaundice, Mottled Neurological: Denies: Confusion, Dizziness, Headache Psychiatric: Denies: Confusion, Depression - Patient Data Vitals - Most Recent: Last Vital Signs Temp 36.8 C 06/01/19 04:55 Pulse 72 06/01/19 04:55 Resp 18 06/01/19 04:55 BP 118/96 H 06/01/19 04:55 Pulse Ox 96 06/01/19 04:55 Weight - Most Recent: 125.827 kg - Exam General: Reports: Alert, Oriented, Cooperative, No Acute Distress HEENT: Reports: Pupils Equal, Pupils Reactive, EOMI, Mucous Membr. Moist/[place] Neck: Reports: Supple, Trachea Midline, No JVD, No Thyromegaly, Lymphadenopathy Lungs: Reports: Clear to Auscultation, Normal Respiratory Effort. Denies: Crackles, Rales, Rhonchi, Wheezing Cardiovascular: Reports: Regular Rate, Regular Rhythm. Denies: Murmurs, Gallops , Rubs GI/Abdominal Exam: Normal Bowel Sounds, Soft, Non-Tender, No Organomegaly. No: Guarding, Rigid, Rebound, Tender Back Exam: Reports: Normal Inspection Extremities: Normal Inspection, No Pedal Edema, Normal Capillary Refill Skin: Reports: Warm, Dry Neurological: Reports: No New Focal Deficit Psy/Mental Status: Reports: Alert, Normal Affect, Normal Mood
[2019-06-01 08:12] LABS: HEMOGLOBIN A1C 4.8 % (4.50-6.20)
[2019-06-01] MEDS ORDERED: FLUoxetine 10 MG Cap PO SCH ×2 (09:00)
== END 2019-06-01 11:32 | disposition home or self-care (01) ==
LOC: JD.ED 16:30 → JD.MS 20:05
PROVIDERS: ADMIT Internal Medicine; ATTEND Internal Medicine
DX: J39.1 Other abscess of pharynx (principal); H65.01 Acute serous otitis media, right ear; N17.9 Acute kidney failure, unspecified; D75.89 Other specified diseases of blood and blood-forming organs; E04.1 Nontoxic single thyroid nodule; E66.01 Morbid (severe) obesity due to excess calories; F32.9 Major depressive disorder, single episode, unspecified; F41.9 Anxiety disorder, unspecified; Z79.899 Other long term (current) drug therapy; Z68.41 Body mass index [BMI] 40.0-44.9, adult
CPT/HCPCS: 36415; 70491; 80048; 80053; 80061; 82607; 82728; 82746; 83036; 83540; 83735; 84100; 84443; 84466; 84703; 85007; 85025; 85027; 86140; 87040; 87430; 87804; 96361; 96365; 96375; 99284; A9270; J0295; J1100; J1170; J1885; J3490; J7030; J7040; J7120; Q9967; 96366; 96367; 96376; G0378

== ENCOUNTER 2019-09-27 03:31 | Emergency (ER) | payer OTHER ==
--- NOTE | 2019-09-27 03:48 | EDM.PDOC ---
ED HPI GENERAL MEDICAL PROBLEM - General Chief Complaint: General Stated Complaint: POS FOR INFLUENZA A SOB Time Seen by Provider: 09/27/19 03:47 - History of Present Illness INITIAL COMMENTS - FREE TEXT/NARRATIVE: 34-year-old female presents the emergency room with shortness of breath. Patient developed a cough now 4 days ago. She was seen in the walk-in clinic on Tuesday diagnosed with influenza A and started on Tamiflu since that time she is developed a catch and pain in her chest when she tries to breathe or cough. Her cough for the most part is nonproductive. But she finds this pain and catch in her chest very uncomfortable. Has not any recent fevers. Denies any other complaints at this point - Related Data Allergies Allergy/AdvReac Type Severity Reaction Status Date / Time Seasonal Allergy Hives Uncoded 09/27/19 03:45 Home Meds: Home Meds FLUoxetine [PROzac] 10 mg PO DAILY 01/16/19 [History] Albuterol Sulfate [Albuterol Sulfate Hfa] 8.5 gm IH Q4H #1 [email or web address] 09/27/19 [ Rx] Albuterol [Proventil Neb Soln] 2.5 mg .XX Q6H #40 neb 09/27/19 [Rx] Past Medical History Cardiovascular History: Reports: None Respiratory History: Reports: None Gastrointestinal History: Reports: None Genitourinary History: Reports: None [employer] History: Reports: None Neurological History: Reports: None Psychiatric History: Reports: Depression Endocrine/Metabolic History: Reports: None Hematologic History: Reports: None Immunologic History: Reports: None Oncologic (Cancer) History: Reports: None Dermatologic History: Reports: None - Infectious Disease History Infectious Disease History: Reports: None - Past Surgical History Head Surgeries/Procedures: Reports: None HEENT Surgical History: Reports: Adenoidectomy, Tonsillectomy Other HEENT Surgeries/Procedures: 2001 Other Musculoskeletal Surgeries/Procedures:: Knee surgery after getting bucked off a horse in 2002. Repaired meniscus tear Social & Family History - Family History Family Medical History: Noncontributory - Caffeine Use Caffeine Use: Reports: None - Living Situation & Occupation Living situation: Reports: Single Occupation: Student ED ROS GENERAL - Review of Systems Review Of Systems: See Below Constitutional: Reports: No Symptoms. Denies: Fever, Chills HEENT: Reports: No Symptoms Respiratory: Reports: Shortness of Breath, Pleuritic Chest Pain, Cough. Denies : Sputum Cardiovascular: Reports: No Symptoms Endocrine: Reports: No Symptoms GI/Abdominal: Reports: No Symptoms : Reports: No Symptoms Musculoskeletal: Reports: No Symptoms Skin: Reports: No Symptoms ED EXAM, GENERAL - Physical Exam Exam: See Below Exam Limited By: No Limitations General Appearance: Alert, No Apparent Distress Eye Exam: Bilateral Eye: Normal Inspection Ears: Normal External Exam, Normal Canal, Hearing Grossly Normal, Normal TMs Nose: Normal Inspection, Normal Mucosa, No Blood Throat/Mouth: Normal Inspection, Normal Lips, Normal Teeth, Normal Gums, Normal Oropharynx, Normal Voice, No Airway Compromise Head: Atraumatic, Normocephalic Neck: Normal Inspection, Supple, Non-Tender, Full Range of Motion. No: Lymphadenopathy (L), Lymphadenopathy (R) Respiratory/Chest: No Respiratory Distress, Lungs Clear, Other (She feels discomfort when she breathes and then stops so it is a ratchet type breathing motion) Cardiovascular: Regular Rate, Rhythm, No Edema, No Murmur GI/Abdominal: Normal Bowel Sounds, Soft, Non-Tender, Other (Obese) Course - Vital Signs Last Recorded V/S: Last Vital Signs Temp 36.9 C 09/27/19 03:41 Pulse 84 09/27/19 03:41 Resp 20 09/27/19 03:41 BP 132/102 H 09/27/19 03:41 Pulse Ox 96 09/27/19 04:04 - Orders/Labs/Meds Orders: Active Orders 24 hr Category Date Time Status RT Aerosol Therapy [RC] ASDIRECTED Care 09/27/19 03:56 Active Chest 2V [CR] Stat Exams 09/27/19 03:55 Ordered Albuterol [Proventil Neb Soln] Med 09/27/19 04:39 Once 2.5 mg NEB ONETIME ONE Meds: Medications Discontinued Medications Generic Name Dose Route Start Last Admin Trade Name David PRN Reason Stop Dose Admin Albuterol 2.5 mg 09/27/19 03:55 09/27/19 04:01 Proventil Neb Soln NEB 09/27/19 03:56 2.5 mg ONETIME ONE Administration Albuterol 2.5 mg 09/27/19 06:00 Proventil NEB QIDRT ELICIA - Re-Assessments/Exams Free Text/Narrative Re-Assessment/Exam: 09/27/19 04:40 Had a good improvement with an albuterol nebulizer was breathing much smoother. We will give her prescription for nebulizer solution she has a nebulizer machine at home and give her prescription for an albuterol MDI 2 puffs q. 4 while awake Departure - Departure Time of Disposition: 04:42 Disposition: Home, Self-Care 01 Clinical Impression: Bronchitis - Discharge Information Prescriptions: Albuterol [Proventil Neb Soln] 2.5 mg .XX Q6H #40 neb Albuterol Sulfate [Albuterol Sulfate Hfa] 8.5 gm IH Q4H #1 hfa.[email or web address] Forms: ED Department Discharge Additional Instructions: Return to the emergency room with any questions problems or worsening symptoms. Use your nebulizer as directed use the inhaler as needed. Follow-up with your regular healthcare provider next week Use ibuprofen for the chest wall discomfort. Sepsis Event Note - Evaluation Sepsis Screening Result: No Definite Risk - Focused Exam Vital Signs: Vital Signs Temp Pulse Resp BP Pulse Ox Pulse Ox 09/27/19 04:04 96 09/27/19 03:41 36.9 C 84 20 132/102 H 99 Date Exam was Performed: 09/27/19 Time Exam was Performed: 04:40 - My Orders Last 24 Hours: My Active Orders 09/27/19 03:55 Chest 2V [CR] Stat 09/27/19 03:56 RT Aerosol Therapy [RC] ASDIRECTED 09/27/19 04:39 Albuterol [Proventil Neb Soln] 2.5 mg NEB ONETIME ONE - Assessment/Plan Last 24 Hours: My Active Orders 09/27/19 03:55 Chest 2V [CR] Stat 09/27/19 03:56 RT Aerosol Therapy [RC] ASDIRECTED 09/27/19 04:39 Albuterol [Proventil Neb Soln] 2.5 mg NEB ONETIME ONE
[2019-09-27] MEDS ORDERED: Albuterol 0.083% 2.5 MG/3 ML Neb Soln NEB ONE ×2 (03:55→04:39)
[2019-09-27] MEDS ORDERED: Albuterol 0.083% 2.5 MG/3 ML Neb Soln ONE (04:49)
[2019-09-27] MEDS ORDERED: Albuterol 0.5% 2.5 MG/0.5 ML Neb Soln NEB SCH (06:00)
--- NOTE | 2019-09-27 06:41 | CR ---
Chest: Two views of the chest were obtained. Comparison: No prior chest x-ray is available. Heart size and mediastinum are normal. Lungs are clear with no acute parenchymal change. Bony structures are unremarkable. Impression: 1. Nothing acute is identified on two-view chest x-ray. Diagnostic code #1 This report was dictated in [place] Standard Time
== END 2019-09-27 04:52 | disposition home or self-care (01) ==
LOC: JD.ED 03:31
DX: J40 Bronchitis, not specified as acute or chronic (principal); F32.9 Major depressive disorder, single episode, unspecified; Z91.048 Other nonmedicinal substance allergy status; Z79.899 Other long term (current) drug therapy
CPT/HCPCS: 71046; 71046-26; 94640; 99283; 99285-25

== ENCOUNTER 2022-04-14 09:48 | Emergency (ER) | payer OTHER ==
[2022-04-14] MEDS ORDERED: diphenhydrAMINE 50 MG/ML SDV IVPUSH ONE (09:55)
[2022-04-14] MEDS ORDERED: methylPREDNISolone Sodium Succinate 125 MG/2 ML SDV IVPUSH ONE (09:55)
[2022-04-14] MEDS ORDERED: Sodium Chloride 0.9% 10 ML Syringe FLUSH PRN (09:55)
[2022-04-14] MEDS ORDERED: Famotidine 20 MG/2 ML SDV IVPUSH ONE (09:56)
== END 2022-04-14 11:18 | disposition home or self-care (01) ==
LOC: JD.ED 09:48
DX: T78.40XA Allergy, unspecified, initial encounter (principal); Z91.048 Other nonmedicinal substance allergy status; Z79.899 Other long term (current) drug therapy
CPT/HCPCS: 96374; 96375; 99283; J1200; J2930; J3490

== ENCOUNTER 2022-06-09 14:02 | Emergency (ER) | payer OTHER | END 2022-06-09 15:22 | LOC: JD.ED 14:02 | DX: G98.8 Other disorders of nervous system (principal); Z91.048 Other nonmedicinal substance allergy status; Z79.899 Other long term (current) drug therapy; Z20.822 Contact with and (suspected) exposure to COVID-19 | CPT/HCPCS: 99284; U0002 ==

== ENCOUNTER 2023-04-16 13:00 | Emergency (ER) | payer OTHER, MEDICAID ==
[2023-04-17] MEDS ORDERED: predniSONE 20 MG Tab PO SCH (07:00)
== END 2023-04-16 14:30 | disposition home or self-care (01) ==
LOC: JD.ED 13:00
DX: L30.9 Dermatitis, unspecified (principal); Z91.09 Other allergy status, other than to drugs and biological substances
CPT/HCPCS: 99282; J7512

== ENCOUNTER 2024-01-05 08:54 | Emergency (ER) | payer MEDICAID, OTHER ==
[2024-01-05 09:47] LABS: BASOPHILS PERCENT AUTO 0.3 % (0.0-1.0); EOSINOPHILS ABSOLUTE AUTO 0.1 K/mm3 (0.0-0.4); EOSINOPHILS PERCENT AUTO 0.9 % (0.0-6.0); HEMATOCRIT 42.1 % (37.0-47.0); HEMOGLOBIN 13.6 gm/dl (12.0-16.0); IMMATURE GRAN ABSOLUTE AUTO 0.03 K/mm3 (0.00-0.05); IMMATURE GRAN PERCENT AUTO 0.4 % (0.0-0.4); LYMPHOCYTES ABSOLUTE AUTO 2.3 K/mm3 (1.0-4.8); LYMPHOCYTES PERCENT AUTO 29.4 % (24.0-44.0); MEAN CORPUSCULAR HEMOGLOBIN 32.7 pg (28.0-32.0); MEAN CORPUSCULAR HGB CONC 32.3 g/dl (32.0-36.0); MEAN CORPUSCULAR VOLUME 101.2 fl (83.0-99.0); MEAN PLATELET VOLUME 11.1 fl (9.4-12.3); MONOCYTES ABSOLUTE AUTO 0.5 K/mm3 (0.0-0.8); MONOCYTES PERCENT AUTO 6.4 % (0.0-8.0); NEUTROPHILS ABSOLUTE AUTO 4.8 K/mm3 (1.8-7.7); NEUTROPHILS PERCENT AUTO 62.6 % (41.0-71.0); PLATELET COUNT,PLT 233 K/mm3 (150-400); RED BLOOD CELL COUNT 4.16 M/mm3 (4.10-5.30); WHITE BLOOD CELL COUNT,WBC 7.65 K/mm3 (3.9-11.3)
[2024-01-05 10:06] LABS: D-DIMER QUANTITATIVE 0.2 mg/L (0.19-0.50); INR 1.02; PROTHROMBIN TIME 10.9 SECONDS (9.7-12.0)
[2024-01-05 10:21] LABS: A/G RATIO 1.2 (1-2); ALANINE AMINOTRANSFERASE,ALT 21 U/L (14-59); ALBUMIN 3.5 g/dl (3.4-5.0); ALKALINE PHOSPHATASE 57 U/L (46-116); ANION GAP 13.3 (5-15); ASPARTATE AMNIOTRANSFERASE,AST 13 U/L (15-37); BILIRUBIN TOTAL 0.4 mg/dL (0.2-1.0); BLOOD UREA NITROGEN,BUN 8 mg/dL (7-18); CALCIUM 8.9 mg/dL (8.5-10.1); CARBON DIOXIDE,CO2 26 mEq/L (21-32); CHLORIDE,CL 106 mEq/L (98-107); EST CRCL DRUG DOSING (CG) 78.46 mL/min; ESTIMATED GFR 75 mL/min (>60); GLUCOSE RANDOM 101 mg/dL (70-99); LIPASE 32 U/L (16-77); POTASSIUM,K 3.3 mEq/L (3.5-5.1); PROTEIN TOTAL,TP 6.5 g/dl (6.4-8.2); SODIUM,NA 142 mEq/L (136-145); TROPONIN I HIGH SENSITIVITY < 4 pg/mL (<=51)
[2024-01-05 10:23] LABS: PRO B-TYPE NATRIUR PEPT,BNPPRO 62 pg/mL (0-125)
[2024-01-05 10:33] LABS: HCG QUALITATIVE,SERUM NEGATIVE (NEGATIVE)
[2024-01-05] MEDS: Potassium Chloride 20 MEQ Tab.ER PO ONE (11:04)
[2024-01-05] MEDS: Ondansetron 4 MG Tab.DIS PO ONE (11:04)
[2024-01-05] MEDS: Potassium Chloride 20 MEQ Tab.ER ONE (11:15)
== END 2024-01-05 12:46 | disposition home or self-care (01) ==
LOC: JD.ED 08:54
DX: R07.9 Chest pain, unspecified (principal); R06.02 Shortness of breath; E87.6 Hypokalemia; Z79.899 Other long term (current) drug therapy; Z91.09 Other allergy status, other than to drugs and biological substances
CPT/HCPCS: 36415; 71045; 80053; 83690; 83880; 84484; 84703; 85025; 85379; 85610; 93005; 99285; A9270